=== PATIENT | female | born 1965 | race Caucasian/White ===

== ENCOUNTER 2018-07-28 23:38 | Emergency (ER) | payer OTHER ==
[~2018-07-28] VITALS: Ht 137.2 cm; Wt 113.0 kg
[~2018-07-28 23:38] MED LIST: ANTIFUNGAL CREA TP; BACTRIM DS TAB1 EACH PO; BENADRYL25 MG PO; CARISOPRODOL 3350 MG PO; CEPHALEXIN 500500 M3 PO; CIPROFLOXACIN500 M1 PO; CLARITIN10 MG PO; CLEOCIN HCL150 MG PO; DIPHENHIST50 MG PO; HYDROCODONE-AP1 EAC6 PO; IBUPROFEN 800800 M1 PO; IBUPROFEN 800800 MG PO; KEFLEX500 M1 PO; LOPERAMIDE 2 MG2 M1 PO; NAPROSYN500 MG PO; NOHOMEMEDICATIONS; NORCO 5-325 TA1 EACH PO; ONDANSETRON HCL4 M2 PO; TRAMADOL 50 MG50 MG PO
[2018-07-28] MEDS ORDERED: TRAZODONE HCL100 MG PO (23:55)
[2018-07-29] MEDS ORDERED: CICLOPIROX 8%34.6 ML TOP (00:13)
[2018-07-29] MEDS ORDERED: BACTRIM DS TAB1 EACH PO (00:13)
[2018-07-29] MEDS ORDERED: KEFLEX500 M1 PO (00:13)
[2018-07-29] MEDS ORDERED: IBUPROFEN 800800 M1 PO (00:34)
[2018-07-29] MEDS ORDERED: ACETAMINOPHEN-1 EAC1 PO (00:34)
[2018-07-29] MEDS ORDERED: ONDANSETRON HCL4 M2 PO (00:57)
[2018-07-29 01:07] VITALS: BP 147/91
== END 2018-07-29 01:07 | disposition home or self-care (01) ==
LOC: M.ERS 23:38
DX: S53.32XA Traumatic rupture of left ulnar collateral ligament, initial encounter (principal); L03.031 Cellulitis of right toe; B35.1 Tinea unguium; F17.210 Nicotine dependence, cigarettes, uncomplicated; Z86.73 Personal history of transient ischemic attack (TIA), and cerebral infarction without residual deficits; Z88.0 Allergy status to penicillin; Z91.018 Allergy to other foods; W18.39XA Other fall on same level, initial encounter; Y93.89 Activity, other specified; Y92.89 Other specified places as the place of occurrence of the external cause; Y99.8 Other external cause status

== ENCOUNTER 2020-12-11 17:01 | Emergency (ER) | payer OTHER ==
[~2020-12-11] VITALS: Ht 142.2 cm; Wt 124.7 kg
[~2020-12-11 17:01] MED LIST changes: +ACETAMINOPHEN-1 EAC1 PO; +CICLOPIROX 8%34.6 ML TOP; +TRAZODONE HCL100 MG PO
[2020-12-11 18:15] VITALS: BP 178/99
[2020-12-11] MEDS ORDERED: ATHLETIC FOOT C30 GM TOP (18:17)
[2020-12-11] MEDS ORDERED: TERBINAFINE HC250 MG PO (18:17)
[2020-12-11] MEDS ORDERED: NEOMYCIN-POLY-7.5 ML OPHTHALMIC (18:17)
== END 2020-12-11 18:15 | disposition home or self-care (01) ==
LOC: M.ERS 17:01
DX: H10.9 Unspecified conjunctivitis (principal); B36.9 Superficial mycosis, unspecified; I25.2 Old myocardial infarction; E03.9 Hypothyroidism, unspecified; F17.210 Nicotine dependence, cigarettes, uncomplicated; Z86.73 Personal history of transient ischemic attack (TIA), and cerebral infarction without residual deficits; Z79.2 Long term (current) use of antibiotics; Z79.899 Other long term (current) drug therapy; Z88.0 Allergy status to penicillin; Z91.018 Allergy to other foods

== ENCOUNTER 2021-01-19 20:26 | Emergency (ER) | payer OTHER ==
[~2021-01-19] VITALS: Ht 142.2 cm; Wt 123.8 kg
[~2021-01-19 20:26] MED LIST changes: +ATHLETIC FOOT C30 GM TOP; +NEOMYCIN-POLY-7.5 ML OPHTHALMIC; +TERBINAFINE HC250 MG PO
[2021-01-19] MEDS ORDERED: LEVOFLOXACIN250 MG PO (21:17)
[2021-01-19] MEDS ORDERED: ZOFRAN4 MG PO (21:17)
[2021-01-19] MEDS ORDERED: TERBINAFINE HC250 MG PO (21:17)
[2021-01-19] MEDS ORDERED: NORCO5 PO (21:18)
[2021-01-19 21:29] LABS: ABSOLUTE BASOPHILS 0.1 thou/uL (0.0-0.2); ABSOLUTE EOSINOPHILS 0.1 thou/uL (0.0-0.7); ABSOLUTE LYMPHOCYTES 1.8 thou/uL (0.8-5.3); ABSOLUTE MONOCYTES 0.8 thou/uL (0.0-1.2); ABSOLUTE NEUTROPHILS 5.5 thou/uL (1.6-8.1); EOSINOPHILS 1.3 %; HEMATOCRIT 44.9 % (37.0-47.0); HEMOGLOBIN 15.6 gm/dL (12.0-15.0); LYMPHOCYTES 22.1 %; MCH 34.6 pg (26.0-34.0); MCHC 34.7 g/dL (28.0-37.0); MCV 99.7 fL (80.0-100.0); MONOCYTES 9.1 %; MPV 9.3 fl. (7.2-11.1); NUCLEATED RBCS 0 /100WBC; PLATELET COUNT* 182 thou/uL (150-400); POLYS 66.5 %; RDW-CV 14.4 % (10.5-14.5); WBC 8.3 thou/uL (4.0-11.0)
[2021-01-19 21:33] LABS: CALCIUM 9.1 mg/dL (8.5-10.1); CREATININE 0.7 mg/dL (0.6-1.3); POTASSIUM 3.9 mmol/L (3.5-5.1)
[2021-01-19 21:36] LABS: PROTIME 10.5 Seconds (9.20-11.50)
[2021-01-19 21:38] LABS: ALBUMIN 3.8 g/dL (3.4-5.0); TOTAL BILIRUBIN 0.6 mg/dL (<0.1-1.0); TOTAL PROTEIN 7.8 g/dL (6.4-8.2)
[2021-01-19] MEDS ORDERED: HYDROCHLOROTHIA25 M1 PO (23:19)
[2021-01-19 23:22] VITALS: BP 152/81
--- NOTE | 2021-01-20 13:57 | EKG ---
[place] [address] ELECTROCARDIOGRAM REPORT Name: LEONARDO QURESHI Room: [facility]#: [id number] Admission: 01/19/21 Attend Phys: Discharge: 01/19/21 Date of : 69 Date of Service: 01/19/212033 Report #: [id number] THIS REPORT FOR: //name// [facility] ED Test Date: 2021-01-19 Test Time: 20:34:10 Pat Name: LEONARDO QURESHI Department: Room: Gender: F [employer]: : 1965 Requested By: Kayy Castle Order Number: [id number] MD: Alberto Fuentes Measurements Intervals [place] Rate: 68 P: 55 WV: 157 QRS: -24 QRSD: 94 T: 46 QT: 395 QTc: 421 Interpretive Statements Sinus rhythm Borderline left axis deviation Abnormal R-wave progression, late transition No previous ECG available for comparison Electronically Signed On 01-20-2021 13:57:05 CDT by Alberto Fuentes [email or web address] <ELECTRONICALLY SIGNED> By: Alberto Fuentes MD, [facility] 01/20/21 1357 [id number] 33 Alberto Fuentes MD, [facility] /EPI
== END 2021-01-19 23:24 | disposition home or self-care (01) ==
LOC: M.ERS 20:26
PROVIDERS: Personal Emergency Response Attendant
DX: F41.0 Panic disorder [episodic paroxysmal anxiety] (principal); F43.0 Acute stress reaction; R07.89 Other chest pain; E03.9 Hypothyroidism, unspecified; Z88.0 Allergy status to penicillin; Z91.018 Allergy to other foods